=== PATIENT | male | born 1955 | race African-American/Black ===

== ENCOUNTER 2017-03-22 09:26 | Emergency (ER) | payer MEDICAID ==
[~2017-03-22] VITALS: Ht 185.4 cm; Wt 109.6 kg
[2017-03-22] MEDS ORDERED: ATEN-42 PO (09:32)
[2017-03-22] MEDS ORDERED: HYDROCHLOROTHIAZIDE (09:32)
[2017-03-22] MEDS ORDERED: MELO-105 PO (09:32)
[2017-03-22] MEDS ORDERED: TRAM50TA3 PO (09:32)
[2017-03-22 10:29] LABS: BASOPHILS % 0.5 % (0.0-2.0); EOSINOPHILS % 2.6 % (0.0-5.0); HEMATOCRIT. 38.1 % (42.0-52.0); LYMPHOCYTES % 45.6 % (20.0-50.0); MEAN CORPUSCULAR VOLUME 90.6 fL (80.0-94.0); MEAN PLATELET VOLUME 7.3 fl (7.4-10.4); MONOCYTES % 7.4 % (2.0-8.0); NEUTROPHILS % 43.9 % (40.0-76.0); PLATELET 216 x1000/uL (130-400); RED CELL DISTRIBUTION WIDTH 13.7 % (11.6-14.6)
[2017-03-22 10:31] LABS: CARBON DIOXIDE 31 mEq/L (21-32); CHLORIDE 100 mEq/L (98-107)
[2017-03-22 14:00] VITALS: BP 130/80
== END 2017-03-22 14:06 | disposition home or self-care (01) ==
LOC: ER 09:30
DX: M65.812 Other synovitis and tenosynovitis, left shoulder (principal); I10 Essential (primary) hypertension; D64.9 Anemia, unspecified; J45.909 Unspecified asthma, uncomplicated
CPT/HCPCS: 36415; 73030; 73221; 80053; 85025; 99285

== ENCOUNTER 2018-06-04 21:29 | Inpatient (IN) | payer MEDICAID ==
[~2018-06-04] VITALS: Ht 185.4 cm; Wt 112.0 kg
[~2018-06-04 21:29] MED LIST: ATEN-42 PO; HYDROCHLOROTHIAZIDE; MELO-105 PO; TRAM50TA3 PO
[2018-06-04] MEDS ORDERED: MORPHINE SULFATE 10 MG/ML CPJ IV ONE (22:45)
[2018-06-04] MEDS ORDERED: SODIUM CHLORIDE 0.9% 1,000 ML IV ONE (22:45)
[2018-06-04] MEDS ORDERED: ONDANSETRON HCL 4MG/2ML INJ IV STA (22:45)
[2018-06-04] MEDS ORDERED: FAMOTIDINE 20MG/2ML VIAL IV STA (22:45)
[2018-06-04] MEDS ORDERED: DIATR MEGLU/DIATRIZOATE SOLN 30ML ONE (23:02)
[2018-06-04 23:38] LABS: BASOPHILS % 0.2 % (0.0-2.0); EOSINOPHILS % 0.2 % (0.0-5.0); LYMPHOCYTES % 12.4 % (20.0-50.0); MEAN CORPUSCULAR HEMOGLOBIN 29.8 pg (28.0-32.0); MEAN CORPUSCULAR VOLUME 91.8 fL (80.0-94.0); MEAN PLATELET VOLUME 7.3 fl (7.4-10.4); MONOCYTES % 7.4 % (2.0-8.0); NEUTROPHILS % 79.8 % (40.0-76.0); PLATELET 334 x1000/uL (130-400); RED BLOOD CELL COUNT 5.02 mill/uL (4.7-6.1); RED CELL DISTRIBUTION WIDTH 13.8 % (11.6-14.6)
[2018-06-04 23:41] LABS: CHLORIDE 98 mEq/L (98-107)
[2018-06-04 23:44] LABS: INR 1.1; PROTHROMBIN TIME 11.2 sec (9.1-11.1)
[2018-06-05] MEDS ORDERED: SODIUM CHLORIDE 0.9% 1,000 ML IV ONE (00:28)
[2018-06-05] MEDS ORDERED: IOHEXOL-300 100 ML BOTTLE ONE (00:37)
[2018-06-05] MEDS ORDERED: CEFTRIAXONE 1 G PREMIX 50 ML IV ONE (00:45)
[2018-06-05 00:56] LABS: CLARITY URINE CLEAR (CLEAR); COLOR URINE YELLOW (YELLOW); KETONES URINE 2+ (NEGATIVE); LEUKOCYTE ESTERASE URINE NEGATIVE (NEGATIVE); NITRITE URINE NEGATIVE (NEGATIVE); OCCULT BLOOD URINE NEGATIVE (NEGATIVE); PROTEIN URINE NEGATIVE (NEGATIVE); SPECIFIC GRAVITY URINE 1.016 (1.005-1.030)
[2018-06-05] MEDS ORDERED: FENTANYL CITRATE/PF 50MCG/ML 2ML VIAL IV ONE ×3 (01:00→05:45)
[2018-06-05 01:08] LABS: *AMPHETAMINES SCREEN URINE NEGATIVE (NEGATIVE); *BARBITURATES SCREEN URINE NEGATIVE (NEGATIVE); *BENZODIAZEPINES SCREEN URINE NEGATIVE (NEGATIVE); *COCAINE SCREEN URINE NEGATIVE (NEGATIVE)
[2018-06-05 01:09] LABS: CANNABINOID URINE SCREEN NEGATIVE (NEGATIVE); METHADONE URINE SCREEN PRESUMTIVE POSITIVE (NEGATIVE); OPIATES URINE SCREEN PRESUMTIVE POSITIVE (NEGATIVE); PHENCYCLIDINE URINE SCREEN NEGATIVE (NEGATIVE)
[2018-06-05] MEDS: SODIUM CHLORIDE 0.9% 1,000 ML IV SCH ×2 (10:38→22:05)
[2018-06-05] MEDS ORDERED: LORAZEPAM 2MG/ML CPJ IV PRN (10:45)
[2018-06-05] MEDS ORDERED: CLONIDINE 0.1MG TABLET PO PRN (10:45)
[2018-06-05] MEDS: HYDROCODONE/APAP 7.5/325MG 1 TAB TABLET PO PRN (13:00)
[2018-06-05] MEDS ORDERED: ENOXAPARIN 40MG/0.4ML SYR SUBCUT ONE (14:37)
[2018-06-05] MEDS ORDERED: METRONIDAZOLE 500 MG PREMIX 100 ML IV SCH (15:00)
[2018-06-05 18:00] VITALS: BP 148/73
[2018-06-05 20:00] VITALS: BP 116/68
[2018-06-05] MEDS: MORPHINE SULFATE 4 MG/ML CPJ (NOT FOR IM USE) IV PRN ×2 (20:00→23:58)
[2018-06-05] MEDS: ENOXAPARIN 40MG/0.4ML SYR SUBCUT SCH (22:04)
[2018-06-06] VITALS: BP 152/79
[2018-06-06] MEDS ORDERED: ATOR20TA PO (00:14)
[2018-06-06] MEDS ORDERED: METH10TA2 PO (00:18)
[2018-06-06] MEDS ORDERED: CYCL10TA7 PO (00:20)
[2018-06-06] MEDS: METRONIDAZOLE 500 MG PREMIX 100 ML IV SCH ×4 (00:57→23:18)
[2018-06-06 04:00] VITALS: BP 146/81
[2018-06-06] MEDS: MORPHINE SULFATE 4 MG/ML CPJ (NOT FOR IM USE) IV PRN ×5 (04:05→21:22)
[2018-06-06 07:34] LABS: BASOPHILS % 0.1 % (0.0-2.0); HEMATOCRIT. 43.1 % (42.0-52.0); HEMOGLOBIN. 14.1 g/dL (14.0-18.0); MEAN CORPUSCULAR VOLUME 91.6 fL (80.0-94.0); MEAN PLATELET VOLUME 7.5 fl (7.4-10.4); MONOCYTES % 6.9 % (2.0-8.0); PLATELET 287 x1000/uL (130-400); RED CELL DISTRIBUTION WIDTH 14.2 % (11.6-14.6)
[2018-06-06 07:39] LABS: CHLORIDE 102 mEq/L (98-107)
[2018-06-06 08:00] VITALS: BP 150/81
[2018-06-06] MEDS: SODIUM CHLORIDE 0.9% 1,000 ML IV SCH ×3 (08:12→23:18)
[2018-06-06 12:00] VITALS: BP 154/79
[2018-06-06] MEDS ORDERED: MORPHINE SULFATE 4 MG/ML CPJ (NOT FOR IM USE) IV NR (12:45)
[2018-06-06] MEDS ORDERED: LEVOFLOXACIN 500MG PREMIX 100 ML IV SCH (14:30)
[2018-06-06 15:54] LABS: HEPATITIS B SURFACE ANTIGEN NEGATIVE
[2018-06-06 16:00] VITALS: BP 155/81
[2018-06-06 16:24] LABS: HEPATITIS A AB IGM NEGATIVE (NEGATIVE)
[2018-06-06] MEDS ORDERED: MEDICATION NOT ON FORMULARY EA (Atenolol 25 MG) PO SCH (16:30)
[2018-06-06] MEDS: LEVOFLOXACIN 500MG PREMIX 100 ML IV SCH (16:37)
[2018-06-06] MEDS ORDERED: MEDICATION NOT ON FORMULARY EA (Cyclobenzaprine Hcl 10 MG) PO SCH (17:00)
[2018-06-06] MEDS ORDERED: CYCLOBENZAPRINE 10MG TABLET PO PRN (17:15)
[2018-06-06 20:00] VITALS: BP 139/80
[2018-06-06] MEDS: ATORVASTATIN CALCIUM 20MG TABLET PO SCH (21:16)
[2018-06-06] MEDS: ACETAMINOPHEN 325MG TABLET PO PRN (21:17)
[2018-06-06] MEDS: ENOXAPARIN 40MG/0.4ML SYR SUBCUT SCH (21:18)
[2018-06-07] VITALS: BP 135/78
[2018-06-07] MEDS: MORPHINE SULFATE 4 MG/ML CPJ (NOT FOR IM USE) IV PRN ×6 (01:27→22:02)
[2018-06-07 04:00] VITALS: BP 151/77
[2018-06-07 06:57] LABS: HEMATOCRIT. 39.8 % (42.0-52.0); HEMOGLOBIN. 13.1 g/dL (14.0-18.0); MEAN CORPUSCULAR HEMOGLOBIN 29.9 pg (28.0-32.0); MEAN CORPUSCULAR VOLUME 90.4 fL (80.0-94.0); MEAN PLATELET VOLUME 7.5 fl (7.4-10.4); MONOCYTES % 10.3 % (2.0-8.0); NEUTROPHILS % 79.7 % (40.0-76.0); PLATELET 270 x1000/uL (130-400); RED CELL DISTRIBUTION WIDTH 13.8 % (11.6-14.6)
[2018-06-07 07:25] LABS: CHLORIDE 100 mEq/L (98-107)
[2018-06-07] MEDS: ATENOLOL 25MG TABLET PO SCH (07:53)
[2018-06-07] MEDS: METRONIDAZOLE 500 MG PREMIX 100 ML IV SCH ×3 (07:54→21:59)
[2018-06-07 08:00] VITALS: BP 138/58
[2018-06-07] MEDS ORDERED: MELOXICAM 7.5MG TABLET PO SCH (09:00)
[2018-06-07] MEDS: METHADONE HCL 10MG TABLET PO SCH (12:03)
[2018-06-07] MEDS: METHADONE HCL 5MG TABLET PO SCH (12:04)
[2018-06-07] MEDS: SODIUM CHLORIDE 0.9% 1,000 ML IV SCH ×2 (12:07→22:00)
[2018-06-07 16:00] VITALS: BP 138/69
[2018-06-07] MEDS: LEVOFLOXACIN 500MG PREMIX 100 ML IV SCH (17:15)
[2018-06-07 20:00] VITALS: BP 139/73
[2018-06-07] MEDS: ATORVASTATIN CALCIUM 20MG TABLET PO SCH (20:51)
[2018-06-07] MEDS: ENOXAPARIN 30MG/0.3ML SYR SUBCUT SCH (20:51)
[2018-06-08] VITALS (7 sets, daily range): BP systolic 119–147; BP diastolic 67–87
[2018-06-08] MEDS: MORPHINE SULFATE 4 MG/ML CPJ (NOT FOR IM USE) IV PRN ×3 (04:40→22:41)
[2018-06-08] MEDS: ACETAMINOPHEN 325MG TABLET PO PRN (05:00)
[2018-06-08 07:52] LABS: BASOPHILS % 0.4 % (0.0-2.0); EOSINOPHILS % 0.3 % (0.0-5.0); HEMATOCRIT. 37.9 % (42.0-52.0); HEMOGLOBIN. 12.4 g/dL (14.0-18.0); LYMPHOCYTES % 17.1 % (20.0-50.0); MEAN CORPUSCULAR HEMOGLOBIN 29.8 pg (28.0-32.0); MEAN CORPUSCULAR VOLUME 91.3 fL (80.0-94.0); MEAN PLATELET VOLUME 7.3 fl (7.4-10.4); MONOCYTES % 11.4 % (2.0-8.0); NEUTROPHILS % 70.8 % (40.0-76.0); PLATELET 298 x1000/uL (130-400); RED BLOOD CELL COUNT 4.15 mill/uL (4.7-6.1); RED CELL DISTRIBUTION WIDTH 13.3 % (11.6-14.6)
[2018-06-08] MEDS: ENOXAPARIN 30MG/0.3ML SYR SUBCUT SCH ×2 (08:24→20:37)
[2018-06-08] MEDS: METHADONE HCL 5MG TABLET PO SCH (08:25)
[2018-06-08] MEDS: METHADONE HCL 10MG TABLET PO SCH (08:25)
[2018-06-08] MEDS: ATENOLOL 25MG TABLET PO SCH (08:26)
[2018-06-08] MEDS: METRONIDAZOLE 500 MG PREMIX 100 ML IV SCH ×3 (08:26→22:40)
[2018-06-08 08:29] LABS: CHLORIDE 100 mEq/L (98-107)
[2018-06-08] MEDS: SODIUM CHLORIDE 0.9% 1,000 ML IV SCH ×2 (08:38→19:19)
[2018-06-08 08:39] LABS: AMYLASE 97 IU/L (25-115)
[2018-06-08 08:43] LABS: LDL CHOLESTEROL 81 mg/dL (5-100)
[2018-06-08 08:44] LABS: HDL CHOLESTEROL 54 mg/dL (40-59)
[2018-06-08] MEDS: HYDROCODONE/APAP 7.5/325MG 1 TAB TABLET PO PRN (16:30)
[2018-06-08] MEDS: LEVOFLOXACIN 500MG PREMIX 100 ML IV SCH (16:30)
[2018-06-08] MEDS: ATORVASTATIN CALCIUM 20MG TABLET PO SCH (20:37)
[2018-06-09] VITALS (7 sets, daily range): BP systolic 124–174; BP diastolic 62–86
[2018-06-09] MEDS: ACETAMINOPHEN 325MG TABLET PO PRN ×2 (00:13→08:48)
[2018-06-09] MEDS: HYDROCODONE/APAP 7.5/325MG 1 TAB TABLET PO PRN ×3 (02:45→21:05)
[2018-06-09] MEDS: SODIUM CHLORIDE 0.9% 1,000 ML IV SCH ×2 (04:19→12:04)
[2018-06-09] MEDS: METRONIDAZOLE 500 MG PREMIX 100 ML IV SCH ×2 (06:54→15:53)
[2018-06-09 08:07] LABS: AMYLASE 69 IU/L (25-115)
[2018-06-09] MEDS: ENOXAPARIN 30MG/0.3ML SYR SUBCUT SCH ×2 (08:46→21:06)
[2018-06-09] MEDS: METHADONE HCL 5MG TABLET PO SCH (08:47)
[2018-06-09] MEDS: METHADONE HCL 10MG TABLET PO SCH (08:47)
[2018-06-09] MEDS: ATENOLOL 25MG TABLET PO SCH (08:48)
[2018-06-09] MEDS: LEVOFLOXACIN 500MG PREMIX 100 ML IV SCH (17:12)
[2018-06-09 18:24] LABS: CLARITY URINE CLEAR (CLEAR); COLOR URINE YELLOW (YELLOW); KETONES URINE NEGATIVE (NEGATIVE); LEUKOCYTE ESTERASE URINE NEGATIVE (NEGATIVE); NITRITE URINE NEGATIVE (NEGATIVE); OCCULT BLOOD URINE NEGATIVE (NEGATIVE); PH URINE 7.5 (4.5-8.0); PROTEIN URINE TRACE (NEGATIVE); SPECIFIC GRAVITY URINE 1.014 (1.005-1.030); UROBILINOGEN URINE 0.2 E.U./dL (0.2-1.0)
[2018-06-09] MEDS: PIPERACILLIN/TAZ 3.375G PREMIX 50 ML IV SCH (18:52)
[2018-06-09 20:45] LABS: BASOPHILS % 0.2 % (0.0-2.0); EOSINOPHILS % 0.7 % (0.0-5.0); HEMATOCRIT. 37.6 % (42.0-52.0); HEMOGLOBIN. 12.2 g/dL (14.0-18.0); LYMPHOCYTES % 15.4 % (20.0-50.0); MEAN CORPUSCULAR HEMOGLOBIN 29.8 pg (28.0-32.0); MEAN CORPUSCULAR VOLUME 91.8 fL (80.0-94.0); MEAN PLATELET VOLUME 7.6 fl (7.4-10.4); MONOCYTES % 13.7 % (2.0-8.0); PLATELET 348 x1000/uL (130-400); RED BLOOD CELL COUNT 4.09 mill/uL (4.7-6.1); RED CELL DISTRIBUTION WIDTH 13.2 % (11.6-14.6)
[2018-06-09 20:47] LABS: CHLORIDE 99 mEq/L (98-107)
[2018-06-09] MEDS: ATORVASTATIN CALCIUM 20MG TABLET PO SCH (21:02)
[2018-06-10] VITALS: BP_SYST 127; BP_SYST 144; BP_DIAS 72; BP_DIAS 73
[2018-06-10] MEDS: METRONIDAZOLE 500 MG PREMIX 100 ML IV SCH (00:31)
[2018-06-10] MEDS: PIPERACILLIN/TAZ 3.375G PREMIX 50 ML IV SCH ×4 (01:31→17:02)
[2018-06-10] MEDS: HYDROCODONE/APAP 7.5/325MG 1 TAB TABLET PO PRN (01:32)
[2018-06-10] MEDS: SODIUM CHLORIDE 0.9% 1,000 ML IV SCH (02:04)
[2018-06-10 04:00] VITALS: BP_SYST 144; BP_DIAS 76; BP_DIAS 86
[2018-06-10 06:44] LABS: HEMATOCRIT. 34.5 % (42.0-52.0); HEMOGLOBIN. 11.5 g/dL (14.0-18.0); MEAN CORPUSCULAR VOLUME 90.2 fL (80.0-94.0); MEAN PLATELET VOLUME 7.3 fl (7.4-10.4); PLATELET 314 x1000/uL (130-400); RED BLOOD CELL COUNT 3.82 mill/uL (4.7-6.1); RED CELL DISTRIBUTION WIDTH 13.1 % (11.6-14.6)
[2018-06-10 06:56] LABS: CHLORIDE 100 mEq/L (98-107)
[2018-06-10 08:00] VITALS: BP 124/79
[2018-06-10] MEDS: METHADONE HCL 10MG TABLET PO SCH (09:13)
[2018-06-10] MEDS: ENOXAPARIN 30MG/0.3ML SYR SUBCUT SCH ×2 (09:14→22:10)
[2018-06-10] MEDS: METHADONE HCL 5MG TABLET PO SCH (09:14)
[2018-06-10] MEDS: ATENOLOL 25MG TABLET PO SCH (09:34)
[2018-06-10 12:00] VITALS: BP 113/77
[2018-06-10] MEDS: MORPHINE SULFATE 4 MG/ML CPJ (NOT FOR IM USE) IV PRN ×2 (12:10→20:25)
[2018-06-10 16:00] VITALS: BP 147/77
[2018-06-10] MEDS: ACETAMINOPHEN 325MG TABLET PO PRN ×2 (16:30→23:21)
[2018-06-10 20:00] VITALS: BP 130/68
[2018-06-10 21:26] LABS: AMYLASE 66 IU/L (25-115)
[2018-06-10] MEDS: ATORVASTATIN CALCIUM 20MG TABLET PO SCH (22:09)
[2018-06-11] VITALS: BP 131/80
[2018-06-11] MEDS: MORPHINE SULFATE 4 MG/ML CPJ (NOT FOR IM USE) IV PRN ×2 (00:40→04:31)
[2018-06-11 04:00] VITALS: BP 131/78
[2018-06-11] MEDS: PIPERACILLIN/TAZ 3.375G PREMIX 50 ML IV SCH ×3 (05:38→11:26)
[2018-06-11 07:49] LABS: HEMATOCRIT. 36.4 % (42.0-52.0); HEMOGLOBIN. 11.9 g/dL (14.0-18.0); MEAN CORPUSCULAR HEMOGLOBIN 29.8 pg (28.0-32.0); MEAN CORPUSCULAR VOLUME 91.4 fL (80.0-94.0); MEAN PLATELET VOLUME 7.4 fl (7.4-10.4); PLATELET 346 x1000/uL (130-400); RED BLOOD CELL COUNT 3.98 mill/uL (4.7-6.1); RED CELL DISTRIBUTION WIDTH 13.2 % (11.6-14.6)
[2018-06-11 07:54] LABS: CHLORIDE 98 mEq/L (98-107)
[2018-06-11 08:00] VITALS: BP 135/86
[2018-06-11] MEDS: ENOXAPARIN 30MG/0.3ML SYR SUBCUT SCH ×2 (08:45→20:41)
[2018-06-11] MEDS: METHADONE HCL 5MG TABLET PO SCH (08:45)
[2018-06-11] MEDS: METHADONE HCL 10MG TABLET PO SCH (08:45)
[2018-06-11] MEDS: ATENOLOL 25MG TABLET PO SCH (08:45)
[2018-06-11 11:03] LABS: PLATELET ESTIMATE NORMAL
[2018-06-11] MEDS: HYDROCODONE/ACETAMINOPHEN 5/325MG TABLET PO PRN ×3 (11:27→23:14)
[2018-06-11 12:00] VITALS: BP 147/86
[2018-06-11 16:00] VITALS: BP 115/82
[2018-06-11] MEDS: ACETAMINOPHEN 325MG TABLET PO PRN (19:04)
[2018-06-11 20:00] VITALS: BP_SYST 111; BP_SYST 152; BP_DIAS 56; BP_DIAS 93
[2018-06-11] MEDS: ATORVASTATIN CALCIUM 20MG TABLET PO SCH (20:41)
[2018-06-11 21:16] LABS: PLATELET ESTIMATE NORMAL
[2018-06-12] VITALS: BP 111/56
[2018-06-12] MEDS: HYDROCODONE/ACETAMINOPHEN 5/325MG TABLET PO PRN ×2 (03:46→09:31)
[2018-06-12 04:00] VITALS: BP 144/81
[2018-06-12 08:00] VITALS: BP 144/75
[2018-06-12] MEDS: METHADONE HCL 10MG TABLET PO SCH (09:27)
[2018-06-12] MEDS: METHADONE HCL 5MG TABLET PO SCH (09:27)
[2018-06-12] MEDS: ATENOLOL 25MG TABLET PO SCH (09:28)
[2018-06-12] MEDS: ENOXAPARIN 30MG/0.3ML SYR SUBCUT SCH (09:28)
[2018-06-12 14:27] VITALS: BP 154/83
[2018-06-12] MEDS: ACETAMINOPHEN 325MG TABLET PO PRN (15:05)
== END 2018-06-12 15:45 | disposition home or self-care (01) | DRG 282 ==
LOC: ER 21:29 → 7WST 06-05 01:00 → EDBEDREQTM 06-05 01:02 → EDBEDREQ 06-05 01:02 → ENRESERV 06-05 16:08 → 6EST 06-12 13:05
PROVIDERS: ADMIT Internal Medicine Nephrology; ATTEND Internal Medicine Nephrology
DX: K85.10 Biliary acute pancreatitis without necrosis or infection (principal); R65.10 Systemic inflammatory response syndrome (SIRS) of non-infectious origin without acute organ dysfunction; E44.1 Mild protein-calorie malnutrition; K74.60 Unspecified cirrhosis of liver; F11.20 Opioid dependence, uncomplicated; K70.0 Alcoholic fatty liver; K83.8 Other specified diseases of biliary tract; I10 Essential (primary) hypertension; J45.909 Unspecified asthma, uncomplicated; K85.20 Alcohol induced acute pancreatitis without necrosis or infection; E87.6 Hypokalemia; E78.5 Hyperlipidemia, unspecified; M19.90 Unspecified osteoarthritis, unspecified site; E66.9 Obesity, unspecified; E11.9 Type 2 diabetes mellitus without complications; E78.00 Pure hypercholesterolemia, unspecified; K80.20 Calculus of gallbladder without cholecystitis without obstruction; Z68.32 Body mass index [BMI] 32.0-32.9, adult; Z79.899 Other long term (current) drug therapy
CPT/HCPCS: 36415; 71045; 74177; 74181; 76700; 80048; 80061; 80076; 80305; 82150; 83036; 83605; 84145; 84484; 86705; 86709; 86803; 87340; 93005; 93970; 96365; 96366; 96375; 99291; J0696; J1650; J1956; J2270; J2405; J2543; J3010; J3490; J7030; J7040; Q9963; Q9967

== ENCOUNTER 2018-07-11 07:33 | Emergency (ER) | payer MEDICAID ==
[~2018-07-11] VITALS: Ht 185.4 cm; Wt 109.0 kg
[~2018-07-11 07:33] MED LIST changes: +ATOR20TA PO; +CYCL10TA7 PO; -HYDROCHLOROTHIAZIDE; +METH10TA2 PO; -TRAM50TA3 PO
[2018-07-11] MEDS ORDERED: KETOROLAC 30MG/ML VIAL IM ONE (12:30)
[2018-07-11] MEDS ORDERED: LORAZEPAM 1MG TABLET PO ONE (12:30)
[2018-07-11] MEDS ORDERED: PREDNISONE 20MG TABLET PO ONE (12:30)
[2018-07-11 13:10] VITALS: BP 163/69
== END 2018-07-11 14:20 | disposition home or self-care (01) ==
LOC: ER 07:33
DX: M54.40 Lumbago with sciatica, unspecified side (principal); J45.909 Unspecified asthma, uncomplicated; E78.00 Pure hypercholesterolemia, unspecified; I10 Essential (primary) hypertension; Z90.89 Acquired absence of other organs
CPT/HCPCS: 72131; 96372; 99284; J1885; J7512

== ENCOUNTER 2020-07-04 06:27 | Inpatient (IN) | payer MEDICARE, OTHER ==
[~2020-07-04] VITALS: Ht 185.4 cm; Wt 103.0 kg
[2020-07-04] VITALS (40 sets, daily range): BP systolic 123–160; BP diastolic 62–92
[2020-07-04] MEDS ORDERED: SODIUM CHLORIDE 0.9% 1000ML BAG (SEPSIS BOLUS) IV ONE (06:45)
[2020-07-04] MEDS ORDERED: NALOXONE HCL 1 MG/ML 2ML VIAL IV ONE (07:00)
[2020-07-04 07:10] LABS: BG BASE EXCESS -24.1 mmol/L (-2.0-2.0); BG CARBOXYHEMOGLOBIN 0.5 % (0.5-1.5); BG DEOXYHEMOGLOBIN 1.6 % (0.0-5.0); BG FRACTION INSPIRED OXYGEN 21; BG HCO3 ACT 3.1 mmol/L (22.0-26.0); BG METHEMOGLOBIN 0.4 % (0.0-1.5); BG OXYGEN SATURATION 98.4 % (92.0-98.5); BG OXYHEMOGLOBIN 97.5 % (94.0-97.0); BG PCO2 10.6 mmHg (35.0-45.0); BG PH 7.089 (7.350-7.450); BG PO2 131.1 mmHg (75.0-100.0); BG SAMPLE SITE LEFT RADIAL; BG TOTAL HEMOGLOBIN 16.6 g/dL (12.0-18.0); BG VENT MODE ROOM AIR
[2020-07-04] MEDS ORDERED: INSULIN REGULAR (DRIP) 100 UNITS in SODIUM CHLORIDE 0.9% 99 ML IV ONE ×2 (07:15→07:45)
[2020-07-04 07:23] LABS: BASOPHILS % 0.3 % (0.0-2.0); HEMATOCRIT. 49.8 % (42.0-52.0); HEMOGLOBIN. 15.6 g/dL (14.0-18.0); LYMPHOCYTES % 9.3 % (20.0-50.0); MEAN CORPUSCULAR HEMOGLOBIN 29.6 pg (28.0-32.0); MEAN CORPUSCULAR VOLUME 94.3 fL (80.0-94.0); MEAN PLATELET VOLUME 8.6 fl (7.4-10.4); MONOCYTES % 7.4 % (2.0-8.0); PLATELET 287 x1000/uL (130-400); RED BLOOD CELL COUNT 5.28 mill/uL (4.7-6.1); RED CELL DISTRIBUTION WIDTH 13.3 % (11.6-14.6)
[2020-07-04 07:31] LABS: CHLORIDE 95 mEq/L (98-107)
[2020-07-04 07:36] LABS: ETHANOL BLOOD < 10 mg/dL
[2020-07-04 07:37] LABS: INR 1.1; PROTHROMBIN TIME 11.9 sec (9.6-11.0)
[2020-07-04 07:41] LABS: BETA HYDROXYBUTYRATE 8.1 mMol/L (0.0-0.3)
[2020-07-04 08:39] LABS: CLARITY URINE CLEAR (CLEAR); COLOR URINE YELLOW (YELLOW); KETONES URINE 4+ (NEGATIVE); LEUKOCYTE ESTERASE URINE NEGATIVE (NEGATIVE); NITRITE URINE NEGATIVE (NEGATIVE); OCCULT BLOOD URINE 1+ (NEGATIVE); PROTEIN URINE 1+ (NEGATIVE); SPECIFIC GRAVITY URINE 1.025 (1.005-1.030); UROBILINOGEN URINE 0.2 E.U./dL (0.2-1.0)
[2020-07-04 08:57] LABS: *AMPHETAMINES SCREEN URINE NEGATIVE (NEGATIVE); *BARBITURATES SCREEN URINE NEGATIVE (NEGATIVE); *BENZODIAZEPINES SCREEN URINE NEGATIVE (NEGATIVE); *COCAINE SCREEN URINE NEGATIVE (NEGATIVE); CANNABINOID URINE SCREEN NEGATIVE (NEGATIVE); METHADONE URINE SCREEN PRESUMTIVE POSITIVE (NEGATIVE); OPIATES URINE SCREEN NEGATIVE (NEGATIVE)
[2020-07-04 08:58] LABS: PHENCYCLIDINE URINE SCREEN NEGATIVE (NEGATIVE)
[2020-07-04] MEDS ORDERED: SODIUM CHLORIDE 0.9% 1,000 ML IV SCH (09:00)
[2020-07-04] MEDS ORDERED: ENOXAPARIN 40MG/0.4ML SYR SUBCUT SCH (09:00)
[2020-07-04] MEDS ORDERED: IPRATROPIUM/ALBUTEROL 0.5-3(2.5)MG/3ML NEB HHN PRN (09:00)
[2020-07-04] MEDS ORDERED: DIPHENHYDRAMINE 50MG/ML VIAL IV PRN (09:00)
[2020-07-04] MEDS ORDERED: ONDANSETRON HCL 4MG/2ML INJ IV PRN (09:00)
[2020-07-04] MEDS ORDERED: CLONIDINE 0.1MG TABLET PO PRN (09:00)
[2020-07-04] MEDS ORDERED: SODIUM BICARBONATE 8.4% 1 MEQ/ML 50ML SYR IV NR (09:45)
[2020-07-04] MEDS: ENOXAPARIN 30MG/0.3ML SYR SUBCUT SCH ×2 (09:52→20:36)
[2020-07-04] MEDS: BLOOD SUGAR DIAGNOSTIC STRIP TEST SCH ×2 (13:00→14:34)
[2020-07-04] MEDS ORDERED: INSULIN REGULAR (DRIP) 100 UNITS in SODIUM CHLORIDE 0.9% 99 ML IV PRN (13:30)
[2020-07-04] MEDS ORDERED: DEXTROSE 50% WATER 50ML SYRINGE IV PRN ×2 (13:45)
[2020-07-04] MEDS ORDERED: INSULIN REGULAR (DRIP) 100 UNITS in SODIUM CHLORIDE 0.9% 100 ML IV SCH (14:00)
[2020-07-04] MEDS ORDERED: METHADONE HCL 10MG TABLET PO SCH (14:45)
[2020-07-04 16:06] LABS: CHLORIDE 112 mEq/L (98-107)
[2020-07-04] MEDS: CYCLOBENZAPRINE 10MG TABLET PO SCH (17:00)
[2020-07-04 18:34] LABS: CHLORIDE 110 mEq/L (98-107)
[2020-07-04] MEDS: DEXT 5%/0.9% NACL KCL 20MEQ/L 1,000 ML IV SCH ×2 (20:36→20:42)
[2020-07-04 21:33] LABS: CHLORIDE 112 mEq/L (98-107)
[2020-07-04] MEDS: ACETAMINOPHEN 325MG TABLET PO PRN (22:04)
[2020-07-04] MEDS ORDERED: LORAZEPAM 2MG/ML CPJ IV PRN (23:30)
[2020-07-05] VITALS (26 sets, daily range): BP systolic 80–170; BP diastolic 36–148
[2020-07-05] MEDS ORDERED: HALOPERIDOL LACTATE 5MG/ML VIAL IM NR (00:15)
[2020-07-05 01:12] LABS: CHLORIDE 116 mEq/L (98-107)
[2020-07-05] MEDS: DEXT 5%/0.9% NACL KCL 20MEQ/L 1,000 ML IV SCH ×2 (01:14→11:37)
[2020-07-05] MEDS ORDERED: POTASSIUM CHLORIDE INJ 40 MEQ in DEXT 5% WATER 250 ML IV NR (03:00)
[2020-07-05 04:26] LABS: BASOPHILS % 0.1 % (0.0-2.0); EOSINOPHILS % 0.1 % (0.0-5.0); HEMATOCRIT. 41.1 % (42.0-52.0); HEMOGLOBIN. 13.5 g/dL (14.0-18.0); LYMPHOCYTES % 14.5 % (20.0-50.0); MEAN CORPUSCULAR HEMOGLOBIN 29.3 pg (28.0-32.0); MEAN CORPUSCULAR VOLUME 88.9 fL (80.0-94.0); MEAN PLATELET VOLUME 7.6 fl (7.4-10.4); NEUTROPHILS % 71.3 % (40.0-76.0); PLATELET 225 x1000/uL (130-400); RED BLOOD CELL COUNT 4.62 mill/uL (4.7-6.1); RED CELL DISTRIBUTION WIDTH 13.5 % (11.6-14.6)
[2020-07-05 04:34] LABS: CHLORIDE 113 mEq/L (98-107)
[2020-07-05 04:41] LABS: LDL CHOLESTEROL 69 mg/dL (5-100)
[2020-07-05 04:42] LABS: HDL CHOLESTEROL 67 mg/dL (40-59)
[2020-07-05] MEDS ORDERED: DEXT 5%/0.9% NACL KCL 20MEQ/L 1,000 ML IV SCH (09:00)
[2020-07-05] MEDS: ENOXAPARIN 30MG/0.3ML SYR SUBCUT SCH ×2 (09:14→21:17)
[2020-07-05] MEDS ORDERED: METHADONE HCL 10MG TABLET PO SCH (09:15)
[2020-07-05] MEDS: CYCLOBENZAPRINE 10MG TABLET PO SCH ×2 (09:15→17:25)
[2020-07-05] MEDS: ATENOLOL 25MG TABLET PO SCH (09:15)
[2020-07-05] MEDS: ATORVASTATIN CALCIUM 20MG TABLET PO SCH (09:15)
[2020-07-05] MEDS: MELOXICAM 7.5MG TABLET PO SCH (09:15)
[2020-07-05 09:53] LABS: CHLORIDE 113 mEq/L (98-107)
[2020-07-05] MEDS: POTASSIUM CHLORIDE 20MEQ TABLET SR PO SCH (10:01)
[2020-07-05] MEDS: METHADONE HCL 10MG TABLET PO SCH (10:45)
[2020-07-05] MEDS ORDERED: DEXTROSE 50% WATER 50ML SYRINGE IV PRN (11:00)
[2020-07-05] MEDS: BLOOD SUGAR DIAGNOSTIC STRIP TEST SCH ×3 (11:41→21:17)
[2020-07-05] MEDS: INSULIN LISPRO 100 UNITS/ML SUBCUT SCH ×5 (12:32→21:13)
[2020-07-05] MEDS ORDERED: INSULIN GLARGINE UD 100 UNITS/ML SYR SUBCUT SCH (13:00)
[2020-07-05 13:29] LABS: CHLORIDE 111 mEq/L (98-107)
[2020-07-05] MEDS ORDERED: POTASSIUM CHLORIDE 20MEQ TABLET SR PO NR (14:15)
[2020-07-05] MEDS ORDERED: INSU100I28 SQ (16:35)
[2020-07-05] MEDS ORDERED: METF-416 MT (16:35)
[2020-07-05 17:09] LABS: CHLORIDE 113 mEq/L (98-107)
[2020-07-05 17:19] LABS: T4 FREE 1.15 ng/dL (0.76-1.46)
[2020-07-05 17:33] LABS: PHOSPHORUS 0.4 mg/dL (2.5-4.9)
[2020-07-05] MEDS ORDERED: POTASSIUM PHOS,M-BASIC-D-BASIC 30 MMOL in DEXT 5% WATER 500 ML IV NR (18:30)
[2020-07-05] MEDS: INSULIN GLARGINE UD 100 UNITS/ML SYR SUBCUT SCH (21:14)
[2020-07-06] VITALS: BP 93/59
[2020-07-06] MEDS: ACETAMINOPHEN 325MG TABLET PO PRN ×3 (00:08→17:01)
[2020-07-06 04:00] VITALS: BP 130/75
[2020-07-06] MEDS: BLOOD SUGAR DIAGNOSTIC STRIP TEST SCH ×4 (04:00→20:57)
[2020-07-06 07:17] LABS: BASOPHILS % 0.4 % (0.0-2.0); EOSINOPHILS % 0.6 % (0.0-5.0); HEMATOCRIT. 42.4 % (42.0-52.0); HEMOGLOBIN. 13.9 g/dL (14.0-18.0); LYMPHOCYTES % 32.7 % (20.0-50.0); MEAN CORPUSCULAR VOLUME 88.5 fL (80.0-94.0); MEAN PLATELET VOLUME 8.3 fl (7.4-10.4); MONOCYTES % 10.4 % (2.0-8.0); NEUTROPHILS % 55.9 % (40.0-76.0); PLATELET 227 x1000/uL (130-400); RED BLOOD CELL COUNT 4.79 mill/uL (4.7-6.1); RED CELL DISTRIBUTION WIDTH 13.8 % (11.6-14.6)
[2020-07-06 07:47] LABS: CHLORIDE 105 mEq/L (98-107)
[2020-07-06 08:00] VITALS: BP 118/72
[2020-07-06] MEDS: CYCLOBENZAPRINE 10MG TABLET PO SCH ×2 (09:34→17:01)
[2020-07-06] MEDS: MELOXICAM 7.5MG TABLET PO SCH (09:35)
[2020-07-06] MEDS: POTASSIUM CHLORIDE 20MEQ TABLET SR PO SCH (09:35)
[2020-07-06] MEDS: ENOXAPARIN 30MG/0.3ML SYR SUBCUT SCH ×2 (09:35→21:17)
[2020-07-06] MEDS: ATORVASTATIN CALCIUM 20MG TABLET PO SCH (09:35)
[2020-07-06] MEDS: ATENOLOL 25MG TABLET PO SCH (09:42)
[2020-07-06] MEDS: METHADONE HCL 10MG TABLET PO SCH (09:43)
[2020-07-06] MEDS: INSULIN LISPRO 100 UNITS/ML SUBCUT SCH ×4 (09:47→18:13)
[2020-07-06] MEDS: INSULIN GLARGINE UD 100 UNITS/ML SYR SUBCUT SCH (10:27)
[2020-07-06 12:00] VITALS: BP 107/71
[2020-07-06] MEDS ORDERED: INSULIN LISPRO 100 UNITS/ML SUBCUT SCH (12:20)
[2020-07-06] MEDS ORDERED: DEXTROSE 50% WATER 50ML SYRINGE IV PRN (12:45)
[2020-07-06] MEDS ORDERED: MAGNESIUM 2 G PREMIX 50 ML IV SCH (14:00)
[2020-07-06] MEDS ORDERED: POTASSIUM PHOS,M-BASIC-D-BASIC 30 MMOL in DEXT 5% WATER 500 ML IV SCH (14:00)
[2020-07-06] MEDS: INSULIN LISPRO (LOW DOSE) 100 UNITS/ML SUBCUT SCH (18:12)
[2020-07-06 20:00] VITALS: BP 106/62
[2020-07-06] MEDS ORDERED: INSULIN GLARGINE UD 100 UNITS/ML SYR SUBCUT SCH (22:00)
[2020-07-07] VITALS: BP 100/52
[2020-07-07] MEDS: ACETAMINOPHEN 325MG TABLET PO PRN (02:31)
[2020-07-07] MEDS: BLOOD SUGAR DIAGNOSTIC STRIP TEST SCH ×2 (03:17→06:42)
[2020-07-07 04:00] VITALS: BP 117/53
[2020-07-07 08:00] VITALS: BP 102/61
[2020-07-07] MEDS: INSULIN LISPRO (LOW DOSE) 100 UNITS/ML SUBCUT SCH (08:33)
[2020-07-07] MEDS: INSULIN LISPRO 100 UNITS/ML SUBCUT SCH (08:33)
[2020-07-07] MEDS: ENOXAPARIN 30MG/0.3ML SYR SUBCUT SCH (09:23)
[2020-07-07] MEDS: ATENOLOL 25MG TABLET PO SCH (09:23)
[2020-07-07] MEDS: POTASSIUM CHLORIDE 20MEQ TABLET SR PO SCH (09:24)
[2020-07-07] MEDS: CYCLOBENZAPRINE 10MG TABLET PO SCH (09:24)
[2020-07-07] MEDS: ATORVASTATIN CALCIUM 20MG TABLET PO SCH (09:24)
[2020-07-07] MEDS: MELOXICAM 7.5MG TABLET PO SCH (09:24)
[2020-07-07] MEDS: METHADONE HCL 10MG TABLET PO SCH (09:24)
[2020-07-07 09:58] LABS: CHLORIDE 104 mEq/L (98-107)
[2020-07-07 10:03] LABS: PHOSPHORUS 2.5 mg/dL (2.5-4.9)
[2020-07-07 11:05] VITALS: BP 102/61
== END 2020-07-07 11:58 | disposition home or self-care (01) | DRG 638 ==
LOC: ER 06:39 → 5EST 07:57 → EDBEDREQ 08:07 → ENRESERV 09:44 → 6EST 07-05 17:49
PROVIDERS: ADMIT Internal Medicine; ATTEND Internal Medicine
DX: E11.10 Type 2 diabetes mellitus with ketoacidosis without coma (principal); F11.20 Opioid dependence, uncomplicated; K74.60 Unspecified cirrhosis of liver; E66.9 Obesity, unspecified; E78.00 Pure hypercholesterolemia, unspecified; K76.0 Fatty (change of) liver, not elsewhere classified; K80.20 Calculus of gallbladder without cholecystitis without obstruction; E78.5 Hyperlipidemia, unspecified; E83.39 Other disorders of phosphorus metabolism; M19.90 Unspecified osteoarthritis, unspecified site; E83.42 Hypomagnesemia; G89.29 Other chronic pain; M54.9 Dorsalgia, unspecified; E87.6 Hypokalemia; I10 Essential (primary) hypertension; J45.909 Unspecified asthma, uncomplicated; Z80.9 Family history of malignant neoplasm, unspecified; Z82.49 Family history of ischemic heart disease and other diseases of the circulatory system; Z87.891 Personal history of nicotine dependence; Z91.19 Patient's noncompliance with other medical treatment and regimen; Z71.3 Dietary counseling and surveillance; Z68.29 Body mass index [BMI] 29.0-29.9, adult
CPT/HCPCS: 36415; 36600; 71045; 80048; 80053; 80061; 80305; 80320; 81003; 82010; 82140; 82375; 82533; 82805; 82962; 83036; 83605; 83735; 83880; 83930; 83935; 84100; 84145; 84439; 84443; 84484; 84681; 85025; 93005; 93970; 99291; J1200; J1630; J1650; J1815; J2060; J2310; J2405; J3475; J3480; J3490; J7030; J7050; J7060; A4315; G0480